=== PATIENT | female | born 1935 | race Caucasian/White ===

== ENCOUNTER 2017-04-10 10:51 | Outpatient (CLI) | payer MEDICARE ==
--- NOTE | 2017-04-10 12:03 | MMO ---
BILATERAL SCREENING MAMMOGRAMS: Date: 04/10/17 Comparison made to prior exams from 2014 and 2015. This patient's mammogram was interpreted with the assistance of computer-aided detection. FINDINGS: There is a heterogeneously dense glandular pattern. Numerous benign-appearing calcifications. There a re scattered nodular densities which are stable. No distortion or mass. No interval change. Recommend one year follow-up. IMPRESSION: BIRADS 2: Benign Finding(s) POS: [facility]
== END 2017-04-10 10:52 | disposition home or self-care (01) ==
LOC: MAMMO 10:51
PROVIDERS: ATTEND Internal Medicine
DX: Z12.31 Encounter for screening mammogram for malignant neoplasm of breast (principal)
CPT/HCPCS: 77067; G0202

== ENCOUNTER 2018-07-21 00:40 | Observation (INO) | payer MEDICARE ==
[2018-07-21 01:28] LABS: #Basophils 0.1 thou/uL (0.0-0.2); #Eosinphils 0.5 thou/uL (0.0-0.7); #Lymphocytes 2.2 thou/uL (1.20-3.40); #Monocytes 0.6 thou/uL (0.11-0.59); %Eosinophils 8.7 % (0.0-10.0); %Lymphocytes 41.5 % (21.0-51.0); %Monocytes 10.6 % (0.0-10.0); %Neutrophils 38.1 % (42.0-75.0); Hemoglobin 13.6 g/dL (12.0-16.0); Mean Corpuscular HGB CONC 33.9 g/dL (32.0-36.0); Mean Corpuscular Hemoglobin 32.9 pg (27.0-31.0); Mean Corpuscular Volume 97.2 fL (78.0-98.0); Platelet Count 163 thou/uL (130-400); RBC Distribution Width 12.9 % (11.5-14.5); Red Blood Cell (RBC) Count 4.13 mill/uL (4.20-5.40); White Blood Cell (WBC) Count 5.3 thou/uL (4.8-10.8)
[2018-07-21 01:45] LABS: ALT (SGPT) 17 U/L (8-55); AST (SGOT) 17 U/L (5-34); Albumin 4.2 g/dL (3.4-4.8); Alkaline Phosphatase 56 U/L (40-150); Anion Gap 14 mmol/L (10-20); BUN (Urea Nitrogen) 21 mg/dL (9.8-20.1); Bilirubin, Total 0.3 mg/dL (0.2-1.2); CK (CPK) 46 U/L (29-168); Calc. Creatinine Clearance 0 mL/min (70-130); Calcium 9.9 mg/dL (7.8-10.44); Carbon Dioxide 26 mmol/L (23-31); Chloride 101 mmol/L (98-107); Estimated GFR-MDRD 71; Globulin 2.7 g/dL (2.4-3.5); Glucose 135 mg/dL (83-110); Lipase 30 U/L (8-78); Potassium 3.9 mmol/L (3.5-5.1); Protein, Total 6.9 g/dL (6.0-8.3); Sodium 137 mmol/L (136-145)
[2018-07-21 02:01] LABS: Bilirubin Negative (Negative); Blood, Urine Negative (Negative); Clarity CLEAR (Clear); Glucose, Urine (Dipstick) Negative (Negative); Leukocyte Moderate (Negative); Nitrite Negative (Negative); Protein, Urine (Dipstick) Negative (Neg-Trace); Specific Gravity, Urine 1.005 (1.002-1.036); Urobilinogen 0.2 mg/dL (0.2-1.0)
[2018-07-21 02:02] LABS: Bacteria/HPF None Seen HPF (None Seen); Hyaline Casts/LPF 0-3 HYALINE CAST LPF (0-3 Hyaline); RBC/HPF 0-3 HPF (0-3); Squamous Epithelial 0-3 HPF (0-3); WBC/HPF 21-50 HPF (0-3)
[2018-07-21] MEDS ORDERED: Aspirin 325 MG TAB ONE (04:00)
[2018-07-21] MEDS ORDERED: cefTRIAXone\\ROCEPHIN 2 GM VIAL ONE (04:08)
[2018-07-21 05:22] LABS: Troponin I Less than 0.010 ng/mL (< 0.028)
[2018-07-21 07:50] LABS: Troponin I Less than 0.010 ng/mL (< 0.028)
--- NOTE | 2018-07-21 08:26 | RAD ---
SINGLE VIEW CHEST: HISTORY: Chest pressure. COMPARISON: 01/03/2017 FINDINGS: A single view of the chest shows a normal sized cardiomediastinal silhouette. The patient is status post sternotomy. There is no evidence of consolidation or pleural effusion. IMPRESSION: No evidence of acute cardiopulmonary disease. POS: [facility]
== END 2018-07-21 09:12 | disposition home or self-care (01) ==
LOC: ERS 00:40 → ERHOLD 04:21
PROVIDERS: ADMIT Internal Medicine; ATTEND Internal Medicine
DX: R07.89 Other chest pain (principal); I45.10 Unspecified right bundle-branch block; N39.0 Urinary tract infection, site not specified; Z79.899 Other long term (current) drug therapy; Z88.2 Allergy status to sulfonamides; Z88.5 Allergy status to narcotic agent; Z88.8 Allergy status to other drugs, medicaments and biological substances; Z95.1 Presence of aortocoronary bypass graft
CPT/HCPCS: 36415; 71045; 80053; 81003; 81015; 82550; 83690; 84484; 85025; 87086; 93005; 96365; J0696

== ENCOUNTER 2018-08-19 10:53 | Emergency (ER) | payer MEDICARE ==
[2018-08-19 12:05] LABS: #Basophils 0.1 thou/uL (0.0-0.2); #Eosinphils 0.3 thou/uL (0.0-0.7); #Lymphocytes 2.6 thou/uL (1.20-3.40); #Monocytes 0.5 thou/uL (0.11-0.59); #Neutrophils 2.9 thou/uL (1.40-6.50); %Basophils 1.4 % (0.0-1.0); %Eosinophils 5.1 % (0.0-10.0); %Lymphocytes 40.5 % (21.0-51.0); %Monocytes 7.4 % (0.0-10.0); %Neutrophils 45.6 % (42.0-75.0); Hemoglobin 13.4 g/dL (12.0-16.0); Mean Corpuscular HGB CONC 34.6 g/dL (32.0-36.0); Mean Corpuscular Hemoglobin 33.1 pg (27.0-31.0); Mean Corpuscular Volume 95.7 fL (78.0-98.0); Mean Platelet Volume 8.5 fL (7.4-10.4); Platelet Count 167 thou/uL (130-400); RBC Distribution Width 12.9 % (11.5-14.5); Red Blood Cell (RBC) Count 4.05 mill/uL (4.20-5.40); White Blood Cell (WBC) Count 6.4 thou/uL (4.8-10.8)
[2018-08-19 12:23] LABS: ALT (SGPT) 16 U/L (8-55); AST (SGOT) 20 U/L (5-34); Albumin 4.1 g/dL (3.4-4.8); Alkaline Phosphatase 58 U/L (40-150); Anion Gap 13 mmol/L (10-20); BUN (Urea Nitrogen) 15 mg/dL (9.8-20.1); Bilirubin, Total 0.7 mg/dL (0.2-1.2); Calc. Creatinine Clearance 0 mL/min (70-130); Carbon Dioxide 27 mmol/L (23-31); Chloride 98 mmol/L (98-107); Estimated GFR-MDRD 80; Glucose 99 mg/dL (83-110); Potassium 4.2 mmol/L (3.5-5.1); Protein, Total 7.1 g/dL (6.0-8.3); Sodium 134 mmol/L (136-145)
--- NOTE | 2018-08-19 12:27 | CT ---
CT BRAIN WITHOUT CONTRAST: Indication: History of altered mental status. Comparison: 08-16-13 FINDINGS: No acute infarct, hemorrhage, or hydrocephalus is present. Septum pellucidum and third ventricle are midline. Skull and extracranial soft tissues appear within normal limits. IMPRESSION: No acute intracranial abnormality. POS: [facility]
--- NOTE | 2018-08-19 13:05 | RAD ---
CHEST ONE VIEW: Indication: Dizziness. Comparison: 07-21-18 FINDINGS: Heart size is upper limits of normal but stable. The aorta is tortuous. Midline sternotomy changes ar e stable. Lungs are clear. No pleural effusion or pneumothorax is evident. Calcified granuloma in the left upper lobe is stable. No acute osseous abnormality is evident. IMPRESSION: No acute cardiopulmonary abnormality. POS: [facility]
[2018-08-19 13:23] LABS: Bilirubin Negative (Negative); Blood, Urine Negative (Negative); Clarity CLEAR (Clear); Glucose, Urine (Dipstick) Negative (Negative); Leukocyte Small (Negative); Nitrite Negative (Negative); Protein, Urine (Dipstick) Negative (Neg-Trace); Specific Gravity, Urine 1.005 (1.002-1.036); Urobilinogen 0.2 mg/dL (0.2-1.0)
[2018-08-19 13:26] LABS: Bacteria/HPF None Seen HPF (None Seen); Hyaline Casts/LPF 0-3 HYALINE CAST LPF (0-3 Hyaline); Pathc Cast-AUWi Flag 0.13 (0-2.49); RBC/HPF 0-3 HPF (0-3); Squamous Epithelial None Seen HPF (0-3)
--- NOTE | 2018-08-23 14:18 | EKG ---
Test Reason : Blood Pressure : / mmHG Vent. Rate : 061 BPM Atrial Rate : 061 BPM P-R Int : 218 ms QRS Dur : 118 ms QT Int : 448 ms P-R-T Axes : -29 -43 012 degrees QTc Int : 450 ms Sinus rhythm with 1st degree A-V block Left axis deviation Incomplete right bundle branch block Abnormal ECG No change from 07/21/2018 Confirmed by PAMELA HURTADO DO ([id number]), newspaper copy editor GREGORY TOM ([id number]) on 08/23/2018 2:18:14 PM Referred By: Confirmed By:PAMELA HURTADO DO
== END 2018-08-19 13:43 ==
LOC: ERS 10:53
DX: R42 Dizziness and giddiness (principal); R73.03 Prediabetes; I25.10 Atherosclerotic heart disease of native coronary artery without angina pectoris; E78.5 Hyperlipidemia, unspecified; E03.9 Hypothyroidism, unspecified; I10 Essential (primary) hypertension; Z79.01 Long term (current) use of anticoagulants; Z79.899 Other long term (current) drug therapy
CPT/HCPCS: 70450; 71045; 80053; 81003; 81015; 83880; 84484; 85025; 93005

== ENCOUNTER 2021-08-17 19:33 | Emergency (ER) | payer MEDICARE ==
[2021-08-17 21:44] LABS: #Basophils 0.1 thou/uL (0.0-0.2); #Eosinphils 0.1 thou/uL (0.0-0.7); #Monocytes 0.5 thou/uL (0.11-0.59); #Neutrophils 4.3 thou/uL (1.40-6.50); %Basophils 0.8 % (0.0-1.0); %Eosinophils 2.1 % (0.0-10.0); %Lymphocytes 28.5 % (21.0-51.0); %Monocytes 7.5 % (0.0-10.0); %Neutrophils 61.2 % (42.0-75.0); Hemoglobin 11.5 g/dL (12.0-16.0); Mean Corpuscular Hemoglobin 33.6 pg (27.0-31.0); Mean Platelet Volume 8.3 fL (7.4-10.4); Platelet Count 220 thou/uL (130-400); RBC Distribution Width 15.6 % (11.5-14.5); Red Blood Cell (RBC) Count 3.43 mill/uL (4.20-5.40); White Blood Cell (WBC) Count 7.1 thou/uL (4.8-10.8)
[2021-08-17 21:59] LABS: ALT (SGPT) Less than 7 U/L (8-55); AST (SGOT) 10 U/L (5-34); Albumin 3.8 g/dL (3.4-4.8); Alkaline Phosphatase 64 U/L (40-110); Anion Gap 15 mmol/L (10-20); BUN (Urea Nitrogen) 15 mg/dL (9.8-20.1); Bilirubin, Total 0.2 mg/dL (0.2-1.2); Calc. Creatinine Clearance 0 mL/min (70-130); Calcium 8.9 mg/dL (7.8-10.44); Carbon Dioxide 23 mmol/L (23-31); Chloride 103 mmol/L (98-107); Globulin 2.8 g/dL (2.4-3.5); Glucose 128 mg/dL (83-110); Potassium 4.3 mmol/L (3.5-5.1); Protein, Total 6.6 g/dL (5.8-8.1); Sodium 137 mmol/L (136-145)
== END 2021-08-18 00:44 | disposition home or self-care (01) ==
LOC: ERS 19:33
DX: R06.02 Shortness of breath (principal); I10 Essential (primary) hypertension
CPT/HCPCS: 36415; 71045; 71260; 80053; 84484; 85025; 93005; 94760

== ENCOUNTER 2022-08-18 13:55 | Emergency (ER) | payer MEDICARE ==
[2022-08-18 14:41] LABS: Bacteria/HPF Rare-Few HPF (None Seen); Bilirubin Negative (Negative); Blood, Urine Negative (Negative); Clarity Clear (Clear); Glucose, Urine (Dipstick) Normal (Negative); Ketone, Urine Negative (Negative); Leukocyte 250 Leu/uL (Negative); Nitrite Negative (Negative); Protein, Urine (Dipstick) 20 mg/dL (Neg-Trace); RBC/HPF 0-3 HPF (0-3); Specific Gravity, Urine 1.022 (1.002-1.036); Squamous Epithelial 0-3 HPF (0-3); Urobilinogen Normal mg/dL (Less than 2); WBC/HPF Greater than 50 HPF (0-3)
[2022-08-18 14:44] LABS: #Basophils 0.1 thou/uL (0.0-0.2); #Eosinphils 0.2 thou/uL (0.0-0.7); #Lymphocytes 2.1 thou/uL (1.20-3.40); #Monocytes 0.5 thou/uL (0.11-0.59); #Neutrophils 2.6 thou/uL (1.40-6.50); %Basophils 1.4 % (0.0-1.0); %Eosinophils 3.6 % (0.0-10.0); %Lymphocytes 38.2 % (21.0-51.0); %Monocytes 8.4 % (0.0-10.0); %Neutrophils 48.4 % (42.0-75.0); Hemoglobin 12.7 g/dL (12.0-16.0); Mean Corpuscular HGB CONC 33.3 g/dL (32.0-36.0); Mean Corpuscular Hemoglobin 33.1 pg (27.0-31.0); Mean Corpuscular Volume 99.5 fl (78.0-98.0); Mean Platelet Volume 8.7 fL (7.4-10.4); Platelet Count 200 10x3/uL (130-400); RBC Distribution Width 16.7 % (11.5-14.5); Red Blood Cell (RBC) Count 3.84 mill/uL (4.20-5.40); White Blood Cell (WBC) Count 5.5 10x3/uL (4.8-10.8)
[2022-08-18] MEDS ORDERED: cefTRIAXone (ROCEPHIN) 1 GM VIAL ONE (15:00)
[2022-08-18 15:07] LABS: ALT (SGPT) 8 U/L (8-55); AST (SGOT) 11 U/L (5-34); Albumin 4.1 g/dL (3.4-4.8); Alkaline Phosphatase 53 U/L (40-110); Anion Gap 15 mmol/L (10-20); BUN (Urea Nitrogen) 28 mg/dL (9.8-20.1); Bilirubin, Total 0.2 mg/dL (0.2-1.2); Calc. Creatinine Clearance 0 mL/min (70-130); Calcium 9.5 mg/dL (7.8-10.44); Carbon Dioxide 25 mmol/L (23-31); Chloride 103 mmol/L (98-107); Estimated GFR 63; Globulin 3.1 g/dL (2.4-3.5); Glucose 143 mg/dL (83-110); Lipase 31 U/L (8-78); Potassium 4.1 mmol/L (3.5-5.1); Protein, Total 7.2 g/dL (5.8-8.1); Sodium 139 mmol/L (136-145)
== END 2022-08-18 16:01 ==
LOC: ERS 13:55
DX: N39.0 Urinary tract infection, site not specified (principal); R07.89 Other chest pain; I25.10 Atherosclerotic heart disease of native coronary artery without angina pectoris; E11.9 Type 2 diabetes mellitus without complications; E78.2 Mixed hyperlipidemia; I10 Essential (primary) hypertension
CPT/HCPCS: 36415; 71045; 80053; 81003; 81015; 83690; 83735; 83880; 84484; 85025; 93005; 96365; J0696